=== PATIENT | male | born 1995 | race Caucasian/White ===

== ENCOUNTER 2017-05-05 14:45 | Emergency (ER) | payer SELFPAY ==
[~2017-05-05] VITALS: Ht 177.8 cm; Wt 68.0 kg
[2017-05-05 15:00] VITALS: BP 101/66
--- NOTE | 2017-05-05 15:18 | NUR ---
DR FARMER AT BEDSIDE FOR EVAL.
[2017-05-05] MEDS ORDERED: LORAZEPAM 1 MG TABLET ONE (15:25)
[2017-05-05] MEDS ORDERED: LORAZEPAM 1 MG TABLET PO ONE (15:30)
== END 2017-05-05 15:55 | disposition home or self-care (01) ==
LOC: ER 14:51
DX: R00.0 Tachycardia, unspecified (principal); F15.10 Other stimulant abuse, uncomplicated; J45.909 Unspecified asthma, uncomplicated
CPT/HCPCS: 93005; 99283; A4606; Z7610